=== PATIENT | male | born 1985 | race Caucasian/White ===

== ENCOUNTER 2017-10-10 18:02 | Emergency (ER) | payer BC ==
[~2017-10-10] VITALS: Ht 190.5 cm; Wt 91.0 kg
[2017-10-10 18:12] VITALS: BP 125/80
[2017-10-10] MEDS ORDERED: ACETAMINOPHEN 500 MG TABLET ONE (18:39)
[2017-10-10] MEDS ORDERED: ACETAMINOPHEN 500 MG TABLET PO ONE (19:00)
[2017-10-10] MEDS ORDERED: ACETAMINOPHEN 325 MG TABLET PO ONE (19:00)
[2017-10-10 19:06] LABS: RAPID INFLUENZA A Negative (Negative); RAPID INFLUENZA B Negative (Negative)
== END 2017-10-10 19:49 | disposition home or self-care (01) ==
LOC: ED 19:33
DX: J00 Acute nasopharyngitis [common cold] (principal); J02.8 Acute pharyngitis due to other specified organisms; B97.89 Other viral agents as the cause of diseases classified elsewhere
CPT/HCPCS: 71046; 87400; 99285